=== PATIENT | male | born 1955 | race Caucasian/White ===

== ENCOUNTER → 2019-10-04 | Outpatient (CLI) | payer MEDICARE, OTHER ==
[~2019-10-04] MED LIST: ASPI-266 PO; ATOR20TA66 PO; CEFP500T4 PO; FLT05NA16 NSEACH; METF500T8 PO; OXYC-12 PO; UBID200C PO
--- NOTE | 2019-10-04 11:58 | Diagnostic Imaging Report ---
PROCEDURE: CT abdomen and pelvis without contrast. TECHNIQUE: Multiple contiguous axial images were obtained through the abdomen and pelvis without the use of intravenous contrast. Auto Exposure Controls were utilized during the CT exam to meet ALARA standards for radiation dose reduction. INDICATION: Prostate cancer. COMPARISON: None available. FINDINGS: The visualized lung bases are clear. The unenhanced liver and spleen are unremarkable. The adrenal glands are unremarkable. The pancreas is unremarkable. Apparent prominence and cystic regions within the central aspect of the bilateral kidneys, left greater than right. The bilateral ureters are unremarkable. No calculi are visualized. Mild scattered vascular calcifications without aneurysmal dilatation of the abdominal aorta. The gallbladder is grossly unremarkable. The appendix is unremarkable. The urinary bladder is unremarkable. The prostate gland is minimally enlarged. No bowel obstruction or pneumatosis. No significant adenopathy, free air, or free fluid within the abdomen or pelvis. [place] left curvature of the lumbar spine. Scattered osseous degenerative changes without acute osseous abnormality. IMPRESSION: Prominent hypodensities within the central aspect of the bilateral kidneys, left greater than right. These are favored to relate to peripelvic cysts. Minimal hydronephrosis on the right and mild hydronephrosis on the left, felt less likely. Renal ultrasound is recommended to help further evaluate. No definite evidence of metastatic disease, though evaluation is slightly limited secondary to the lack of intravenous contrast. Additional findings, as above. Dictated by: Dictated on workstation # [id number]
--- NOTE | 2019-10-04 15:55 | Diagnostic Imaging Report ---
INDICATION: Prostate carcinoma. TECHNIQUE: Patient was administered 26.4 mCi technetium 99m MDP intravenously and whole body imaging was performed after three-hour delay. COMPARISON: No prior bone scans are available for comparison. FINDINGS: There is normal uptake of activity by the axial and appendicular skeleton. There is uptake by both kidneys with excretion into the urinary bladder. No suspicious foci of tracer accumulation are seen to suggest osseous metastatic disease. IMPRESSION: No scintigraphic evidence of osseous metastatic disease. Dictated by: Dictated on workstation # [id number]
== END ==
LOC: CARD 11:20
PROVIDERS: ATTEND Urology
DX: C61 Malignant neoplasm of prostate (principal)
CPT/HCPCS: 74176; 78306

== ENCOUNTER 2022-07-28 09:02 | Outpatient (RCR) | payer MEDICARE, OTHER | END 2022-08-17 | disposition home or self-care (01) | LOC: ONC 09:02 | PROVIDERS: ATTEND Internal Medicine Hematology & Oncology | DX: C61 Malignant neoplasm of prostate (principal) | CPT/HCPCS: 84153; G0463; 99204 ==

== ENCOUNTER 2023-03-16 09:00 | Outpatient (RCR) | payer MEDICARE, OTHER | END 2023-03-17 | disposition home or self-care (01) | LOC: ONC 09:00 | PROVIDERS: ATTEND Internal Medicine Hematology & Oncology | DX: C61 Malignant neoplasm of prostate (principal) | CPT/HCPCS: 99205 ==

== ENCOUNTER 2023-03-23 09:55 | Outpatient (CLI) | payer MEDICARE, OTHER ==
[~2023-03-23] VITALS: Ht 175.3 cm; Wt 76.3 kg
[2023-03-23] MEDS ORDERED: PANT40TA52 PO (11:57)
[2023-03-23] MEDS ORDERED: ATOR20TA66 PO (11:57)
[2023-03-23] MEDS ORDERED: METF-397 PO (11:57)
[2023-03-23] MEDS ORDERED: MULT-974 PO (11:57)
[2023-03-23] MEDS ORDERED: UBID100C44 PO (11:57)
== END 2023-03-23 11:58 | disposition home or self-care (01) ==
LOC: PREOP 09:55
PROVIDERS: ATTEND Surgery
DX: Z01.818 Encounter for other preprocedural examination (principal)

== ENCOUNTER 2023-03-30 12:43 | Day surgery (SDC) | payer MEDICARE, OTHER ==
[~2023-03-30] VITALS: Ht 175 cm; Wt 76.3 kg
[~2023-03-30 12:43] MED LIST changes: +METF-397 PO; +MULT-974 PO; +PANT40TA52 PO; +UBID100C44 PO
[2023-03-30] MEDS ORDERED: LACTATED RINGERS 1,000 ML 1,000 ML IV STA (12:46)
[2023-03-30] MEDS ORDERED: HURRICAINE EXT TUBE (BENZOCAINE) XX PRN (13:00)
--- NOTE | 2023-03-30 13:07 | Progress Note-Pre Operative ---
Pre-Operative Progress Note Date of Available H&P: Mar 30, 2023 Date H&P Reviewed: Mar 30, 2023 Time H&P Reviewed: 13:00 History & Physical: No changes noted Pre-Operative Diagnosis: abd pain, screening, hx prostate ca SARIKA MCDERMOTT MD Mar 30, 2023 13:07
--- NOTE | 2023-03-30 13:08 | Discharge Inst-Surgical ---
D/C Lap Instructions-KIDO New, Converted, or Re-Newed RX: RX on Chart Follow Up Appt Activity as tolerated High Fiber Diet 25g or more per day Avoid Alcohol, Caffeine, Spicy [place] and Acid foods. Drink 64 fluid oz or more of fluids per day. Symptoms to Report: Fever over 101 degree F, Nausea/Vomiting If any problems/questions: Contact your physician or go to Emergency Room SARIKA MCDERMOTT MD Mar 30, 2023 13:08
[2023-03-30 13:09] VITALS: BP 127/90
[2023-03-30] MEDS ORDERED: ONDANSETRON INJECTION 4 MG/2 ML (SDV) IVP PRN ×2 (13:15)
[2023-03-30] MEDS ORDERED: ONDANSETRON 4 MG ORAL DISSOLVE TABLET PO PRN ×2 (13:15)
[2023-03-30] MEDS ORDERED: LIDOCAINE JELLY 2% 6 ML SYRINGE MM PRN (13:30)
[2023-03-30] MEDS ORDERED: MIDAZOLAM INJ 2 MG/2 ML VIAL ONE (14:25)
[2023-03-30] MEDS ORDERED: LIDOCAINE JELLY 2% 6 ML SYRINGE ONE (14:28)
[2023-03-30] MEDS ORDERED: proPOfol INJECTION 200 MG/20 ML VIAL IV ONE (15:29)
[2023-03-30 15:40] VITALS: BP 98/56
[2023-03-30 15:45] VITALS: BP 102/60
[2023-03-30 15:50] VITALS: BP 102/60
--- NOTE | 2023-03-30 15:52 | Anesthesia-General Post-Op ---
MAC Patient Condition Mental Status/LOC: Same as Preop Cardiovascular: Satisfactory Nausea/Vomiting: Absent Respiratory: Satisfactory Pain: Controlled Complications: Absent Post Op Complications Complications None Follow Up Care/Instructions Patient Instructions None needed. Anesthesiology Discharge Order Discharge Order Patient is doing well, no complaints, stable vital signs, no apparent adverse anesthesia problems. No complications reported per nursing. KITA MACKEY DO Mar 30, 2023 15:52
[2023-03-30 16:25] VITALS: BP 102/60
--- NOTE | 2023-03-30 17:47 | Progress Note-Post Operative ---
Post-Operative Progess Note Surgeon (s)/Medication Coordinator (s) Surgeon SARIKA MCDERMOTT MD Medication Coordinator: none Pre-Operative Diagnosis abd pain, screening, hx prostate ca Post-Operative Diagnosis reflux esophagitis(grade B), small-mod HH(3cm), moderate gastritis. mild chronic stage 2 ext and int hemorrhoids, mild sigmoid diverticulosis. Procedure & Operative Findings Date of Procedure 03/30/23 Procedure Performed/Findings EGD with bx. Colonoscopy. Anesthesia Type mac Estimated Blood Loss Estimated blood loss (mL): minimal Specimens/Packing Specimens Removed ge jxn, antrum SARIKA MCDERMOTT MD Mar 30, 2023 17:47
--- NOTE | 2023-03-31 00:01 | OPERATIVE REPORT ---
DATE OF SERVICE: 03/30/2023 ATTENDING PRIMARY CARE PHYSICIAN: Andrea Macias DO PREOPERATIVE DIAGNOSES: Abdominal pain, history of polyps, personal history of prostate cancer. POSTOPERATIVE DIAGNOSES: Reflux esophagitis, [place] grade B; moderate size hiatal hernia, 3 cm in size; moderate gastritis. Mild chronic stage II external and internal hemorrhoids. Mild sigmoid diverticulosis. PROCEDURE: EGD with biopsy, colonoscopy. SURGEON: Sarika Mcdermott MD ANESTHESIA: Monitored anesthesia care. ESTIMATED BLOOD LOSS: Minimal. FINDINGS: Reflux esophagitis, [place] grade B; moderate size hiatal hernia, 3 cm in size; moderate gastritis. Mild chronic stage II external and internal hemorrhoids. Mild sigmoid diverticulosis. DISPOSITION: The patient tolerated the procedure well. INDICATIONS: The patient is a 67-year-old male known to us. He was found to have symptomatic bilateral inguinal hernias, which were repaired laparoscopically on January 28. He then underwent a colonoscopy in 2014 and found to have mild stage II external and internal hemorrhoids as well as a small rectal hyperplastic polyp and mild sigmoid diverticulosis. He was recently seen in the office and states that for the past 6 months, he has had some crampy abdominal pain, more in the epigastric abdominal region. He was recently started on Protonix and believes this has helped some. He also has had a history of polyps; however, he is about to undergo radiation due to a previous history of prostate cancer and status post radical prostatectomy. DESCRIPTION OF PROCEDURE: The patient was brought to the endoscopy suite and laid in the left lateral decubitus position. After adequate IV pain and sedative medications and monitored anesthesia care, the mouthpiece was applied. The endoscope was placed in the mouth, visualizing the pharynx and hypopharyngeal region. Vocal cords, epiglottis and vallecula identified and appeared to be normal. The endoscope was then gently intubated in the esophageal opening and esophagus insufflated. The endoscope was then advanced through the first, second, third portions of esophagus at the level of the GE junction, a reflux esophagitis, [place] grade B identified. No ulcers or strictures identified. A biopsy was taken with forceps with visualization of good hemostasis. The endoscope was then advanced into the stomach and endoscope retroflexed visualizing a moderate size hiatal hernia approximately 3 cm in size. We feel that this is most likely etiology of his epigastric crampy pain. There was moderate gastritis noted. No formal ulcerations, polyps or any neoplasms. A biopsy was taken of the antrum to rule out H. pylori with visualization of good hemostasis. The endoscope was then advanced through the pylorus and the first and second portion of the duodenum, which appeared normal with no distal obstructions. The endoscope was then slowly withdrawn while taking a second look and suctioning of residual air with no additional findings. A digital rectal examination was performed which revealed chronic stage II external and internal hemorrhoids, not actively edematous nor inflamed and no bleeding. Normal sphincter tone was felt and there were no palpable masses. The endoscope was then intubated into the anus, rectum gently insufflated. The endoscope was then advanced through the valves of [place] of the rectum with no polyps or any neoplasms identified. Through the sigmoid colon, a mild sigmoid diverticulosis identified. The endoscope was then advanced through the remainder of the descending, transverse and ascending colon to the cecum, which appeared normal. No polyps or any neoplasms identified. The endoscope was then slowly withdrawn while taking a second look and suctioning of residual air with no additional findings. The patient tolerated the procedure well. We will recommend the necessary lifestyle and dietary accommodation including small and more frequent meals, avoidance of eating at night as well as head elevation while lying supine. He also needs to avoid caffeinated beverages, spicy, greasy and acidic foods. We will also recommend that he continue with the Protonix 40 mg daily. We will also recommend a high-fiber diet with addition of a fiber supplement, which should equal or exceed 30 grams daily to promote soft consistency stools on a daily basis. No polyps or any neoplasms were identified and there is no contraindication to proceed with radiation therapy to the prostatic region. Job ID: [id number] DocumentID: [id number] Dictated Date: 03/30/2023 15:46:51 Environmental Remediation Engineer Date: 03/30/2023 23:58:00 Dictated By: SARIKA MCDERMOTT MD
== END 2023-03-30 16:17 | disposition home or self-care (01) ==
LOC: ENDO 12:43
PROVIDERS: ATTEND Surgery
DX: K21.00 Gastro-esophageal reflux disease with esophagitis, without bleeding (principal); K44.9 Diaphragmatic hernia without obstruction or gangrene; K29.70 Gastritis, unspecified, without bleeding; K64.1 Second degree hemorrhoids; K31.89 Other diseases of stomach and duodenum; R19.7 Diarrhea, unspecified; K64.8 Other hemorrhoids; K57.30 Diverticulosis of large intestine without perforation or abscess without bleeding; Z86.010 Personal history of colon polyps

== ENCOUNTER → 2023-04-07 | Outpatient (CLI) | payer MEDICARE, OTHER ==
[~2023-04-07] MED LIST changes: +CATHETER FLUSH 10 ML SYR IVP PRN
--- NOTE | 2023-04-07 14:02 | Diagnostic Imaging Report ---
Indication: Initial staging prostate carcinoma and rising PSA levels. Patient was administered 9.8 mCi F-18 Clarify in the right antecubital location and PET imaging was performed from the top of skull to mid thighs. Noncontrast CT was also performed for attenuation correction and anatomic correlation. No prior studies are available for comparison. There is a physiologic activity within the lacrimal and salivary glands of the head and neck. No abnormal activity within the chest is identified. There is physiologic activity within the liver and spleen as well as the kidneys and gastrointestinal tract of the abdomen and pelvis. There is excretion of activity into the ureters distally as well as activity within the bladder. No definite activity is seen within abdominal or pelvic lymph nodes. Prostate appears to be surgically absent. No abnormal osseous uptake is identified. IMPRESSION: Unremarkable Clarify study. No suspicious areas of uptake are identified. Dictated by: Dictated on workstation # [id number]
== END ==
LOC: RAD 08:26
PROVIDERS: ATTEND Radiology Radiation Oncology
DX: C61 Malignant neoplasm of prostate (principal); R97.21 Rising PSA following treatment for malignant neoplasm of prostate
CPT/HCPCS: 78815; A9595

== ENCOUNTER 2023-04-13 08:56 | Outpatient (RCR) | payer MEDICARE, OTHER ==
[~2023-04-13 08:56] MED LIST changes: -CATHETER FLUSH 10 ML SYR IVP PRN
== END 2023-04-16 | disposition home or self-care (01) ==
LOC: ONC 08:56
PROVIDERS: ATTEND Internal Medicine Hematology & Oncology
DX: C61 Malignant neoplasm of prostate (principal)
CPT/HCPCS: 77290

== ENCOUNTER → 2023-05-17 | Outpatient (RCR) | payer MEDICARE, OTHER | END | disposition home or self-care (01) | LOC: ONC 04-19 14:00 | PROVIDERS: ATTEND Internal Medicine Hematology & Oncology | DX: Z51.0 Encounter for antineoplastic radiation therapy (principal); C61 Malignant neoplasm of prostate | CPT/HCPCS: 77300; 77301; 77338; 77385; G0463; 77336 ==

== ENCOUNTER → 2023-06-16 | Outpatient (RCR) | payer MEDICARE, OTHER | END | disposition home or self-care (01) | LOC: ONC 05-18 13:57 | PROVIDERS: ATTEND Internal Medicine Hematology & Oncology | DX: Z51.0 Encounter for antineoplastic radiation therapy (principal); C61 Malignant neoplasm of prostate | CPT/HCPCS: 77336; 77385 ==